=== PATIENT | female | born 1940 | race Caucasian/White ===

== ENCOUNTER → 2016-12-30 | Outpatient (CLI) | payer MEDICARE, BC ==
[~2016-12-30] MED LIST: ASPIRIN E.C. 8181 MG PO; ATENOLOL50 MG PO; FOLIC ACID 11 MG/TA1 PO; FOLIC ACID1 MG PO; GLUCOPHAGE XR500 M1 PO; GLUCOTROL XL2.5 MG PO; IRON325 M1 PO; LISINOPRIL/HCTZ1 TA2 PO; LYRICA 75MG CAP75 MG PO; METFORMIN500 MG PO; NEURONTIN300 MG/CAP PO; NORCO 325 MG-7.1 TAB PO; NORVASC 5MG5 MG/TAB PO; PRINZIDE 25 MG-1 TAB PO; ROXICODONE 55 MG/TAB; SLOW FE45 MG PO; TENORMIN 5050 MG/TAB PO; VITAMIN C500 MG PO
== END ==
LOC: SUN.DIA 13:45
DX: E11.40 Type 2 diabetes mellitus with diabetic neuropathy, unspecified (principal); Z79.4 Long term (current) use of insulin; Z71.3 Dietary counseling and surveillance; I10 Essential (primary) hypertension

== ENCOUNTER → 2019-08-22 | Outpatient (CLI) | payer MEDICARE, BC | LOC: MC.RAD 14:32 | DX: Z12.31 Encounter for screening mammogram for malignant neoplasm of breast (principal) ==

== ENCOUNTER → 2020-06-16 | Outpatient (CLI) | payer MEDICARE, BC | LOC: COL.RAD 11:23 | DX: R93.422 Abnormal radiologic findings on diagnostic imaging of left kidney (principal); Z87.440 Personal history of urinary (tract) infections ==

== ENCOUNTER 2021-11-30 18:16 | Emergency (ER) | payer MEDICARE, BC ==
[~2021-11-30] VITALS: Ht 167.6 cm; Wt 50.0 kg
[2021-11-30 18:29] VITALS: TEMP 98.1
[2021-11-30 19:40] LABS: BASO # 0.1 K/mm3 (0.0-0.2); BASO % 0.6 % (0.0-2.0); EOS # 0.2 K/mm3 (0.0-0.7); EOS % 2.3 % (0.0-4.0); GRAN # 5.7 K/mm3 (1.4-6.5); HEMATOCRIT 39.8 % (37.0-47.0); HEMOGLOBIN 13.6 g/dl (12.5-16.0); LYMPH % 22.3 % (20.0-51.0); MEAN CELL VOLUME 90 fl (80.0-100.0); MEAN CORPUSCULAR HEMOGLOBIN 31 pg (27-31); MEAN CORPUSCULAR HGB CONC 34 g/dl (33.0-37.0); MEAN PLATELET VOLUME 10.9 fl (7.4-10.4); MONO % 10.6 % (1.7-9.3); PLATELET COUNT 249 K/mm3 (130-400); RED BLOOD COUNT 4.43 M/mm3 (4.10-5.30); REDCELL DISTRIBUTION WIDTH-CV 13.8 % (11.5-14.5)
[2021-11-30 19:58] LABS: ALANINE AMINOTRANSFERASE 11 U/L (0-55); ALKALINE PHOSPHATASE 52 U/L (40-150); ANION GAP 15 mmol/L (7-16); AST,SGOT 23 U/L (5-34); BILIRUBIN,TOTAL 0.5 mg/dL (0.2-1.2); BLOOD UREA NITROGEN 38 mg/dL (10-20); CALCIUM 9.5 mg/dL (8.4-10.2); CARBON DIOXIDE 21 mmol/L (23-31); CHLORIDE 99 mmol/L (98-107); CREATININE, serum 1.22 mg/dL (0.57-1.11); GLUCOSE 133 mg/dL (70-99); POTASSIUM 4.6 mmol/L (3.5-4.5); SODIUM 135 mmol/L (136-145)
[2021-11-30 20:06] LABS: TROPONIN-I < 0.010 ng/mL (0.00-0.033)
[2021-11-30 20:35] LABS: COLLECTION METHOD CLEAN CATCH
[2021-11-30 20:40] LABS: MUCOUS Present (NOT PRESENT); PH 5 (5-8); SQUAMOUS EPITHELIAL 0-2 /hpf (0-10); URINE APPEARANCE Clear (CLEAR/HAZY); URINE BACTERIA Rare /hpf (NONE SEEN); URINE BILIRUBIN Negative (NEGATIVE); URINE BLOOD Negative (NEGATIVE); URINE COLOR Yellow (YELLOW); URINE GLUCOSE Negative (NEGATIVE); URINE KETONE Negative (NEGATIVE); URINE LEUKOCYTE ESTERASE Negative (NEGATIVE); URINE NITRATE Negative (NEGATIVE); URINE PROTEIN(semi-quant) Negative (NEGATIVE); URINE RBC 0-2 /hpf (0-2); URINE UROBILINOGEN Negative (NEGATIVE)
[2021-11-30 21:00] VITALS: BP 130/88; PULSE 84
== END 2021-11-30 21:00 | disposition home or self-care (01) ==
LOC: COL.ER 18:16
PROVIDERS: Physician Assistant
DX: S01.111A Laceration without foreign body of right eyelid and periocular area, initial encounter (principal); S09.90XA Unspecified injury of head, initial encounter; R94.4 Abnormal results of kidney function studies; I10 Essential (primary) hypertension; E11.40 Type 2 diabetes mellitus with diabetic neuropathy, unspecified; F03.90 Unspecified dementia, unspecified severity, without behavioral disturbance, psychotic disturbance, mood disturbance, and anxiety; Z79.84 Long term (current) use of oral hypoglycemic drugs; Z79.899 Other long term (current) drug therapy; W18.30XA Fall on same level, unspecified, initial encounter

== ENCOUNTER → 2021-12-07 | Outpatient (CLI) | payer MEDICARE, BC ==
[2021-12-07 18:15] VITALS: BP 102/65; PULSE 70; TEMP 98.5
== END ==
LOC: COL.ER 18:11
DX: Z48.02 Encounter for removal of sutures (principal)